=== PATIENT | female | born 1965 | race Caucasian/White ===

== ENCOUNTER 2017-10-29 09:50 | Emergency (ER) | payer BC ==
[2017-10-29 10:03] VITALS: BP 102/44; PULSE 64; TEMP 98; BMI 35.2
--- NOTE | 2017-10-29 12:27 | PDOC ---
History of Present Illness - General Chief Complaint: Injury Stated Complaint: INJURY Time Seen by Provider: 10/29/17 11:33 - History of Present Illness Initial Comments: 52-year-old female without comorbidities presents for evaluation of left knee pain and lower back pain after fall 2 weeks ago. She points to the anterior aspect of the left knee as the area of the discomfort she describes her pain is radicular coming from her lower back to her knee. She has no comorbidities 10/29/17 12:23 Past History - Past Medical History Allergies/Adverse Reactions: Allergies Allergy/AdvReac Type Severity Reaction Status Date / Time No Known Allergies Allergy Verified 10/29/17 09:59 Home Medications: Ambulatory Orders Cyclobenzaprine HCl [Flexeril 10 mg] 10 mg PO HS PRN #10 tablet 10/29/17 Ibuprofen [Motrin -] 600 mg PO TID #30 tablet 10/29/17 COPD: No DVT: No Dementia: No - Immunization History Immunization Up to Date: Yes - Suicide/Smoking/Psychosocial Hx Smoking History: Never smoked Information on smoking cessation initiated: No Hx Alcohol Use: No Drug/Substance Use Hx: No Substance Use Type: None Review of Systems - Review of Systems Musculoskeletal: Yes: See HPI, Back Pain, Joint Pain All Other Systems: Reviewed and Negative *Physical Exam - Vital Signs Last Vital Signs Temp Pulse Resp BP Pulse Ox 98.0 F 64 15 102/44 L 98 10/29/17 09:59 10/29/17 09:59 10/29/17 09:59 10/29/17 09:59 10/29/17 09:59 - Physical Exam Comments: Lumbar spine skin color and temperature are normal. Range of motion slightly decreased. She has mild paralumbar musculature spasm and tenderness bilaterally but greater on the left. No midline tenderness. 5 out of 5 strength in bilateral lower extremities negative straight leg raise test bilaterally. She has no gross sensorimotor deficits she is neurovascular intact. Left knee skin color and temperature are normal. She has moderate tenderness about the area of the patella and MPFL. Range of motion 0-90 with pain at terminal flexion. No medial lateral joint line tenderness. Thigh and calf to soft and nontender. She has no gross sensorimotor deficits. No evidence of instability. She is neurovascularly intact. Extensor Mechanism is intact. 10/29/17 12:23 ED Treatment Course - RADIOLOGY Radiology Studies Ordered: Category Date Time Status KNEE 3 POS-LEFT [RAD] Stat Radiology 10/29/17 11:40 Taken Medical Decision Making - Medical Decision Making X-rays of the left knee show no evidence of fracture trauma destructive process this is most likely knee contusion with an associated lumbar radicular component. She did a split type of fall 2 weeks ago that was her initial trauma. She may have stretched her sciatic nerve and has a sciatic neuropraxia. As well as a knee contusion. 10/29/17 12:25 *DC/Admit/Observation/Transfer Diagnosis at time of Disposition: Contusion of knee, left, Lumbar radiculopathy - Discharge Dispostion Disposition: HOME Condition at time of disposition: Stable Decision to Admit order: No - Referrals Referrals: Jax Carr MD [Staff Physician] - - Patient Instructions Printed Discharge Instructions: Contusion, Lumbar Radiculopathy, DI for Lumbar Radiculopathy Additional Instructions: Return to the emergency room should symptoms worsen or go unresolved. I've given you a prescription for Motrin. This tablets taken 3 times a day with food he may discontinue the tablet if it bothers her stomach. Also given you a prescription for muscle relaxer. This is one tablet at night and will make you sleepy. Please follow-up with orthopedic surgery for further evaluation and treatment of your lower back pain and knee pain. Your x-ray today was negative there was no fracture in her knee. He may weight-bear as tolerated at this point. - Post Discharge Activity
== END 2017-10-29 12:32 | disposition home or self-care (01) ==
LOC: JERFT 09:50
DX: S80.02XA Contusion of left knee, initial encounter (principal); M54.16 Radiculopathy, lumbar region; W18.30XA Fall on same level, unspecified, initial encounter; Y93.89 Activity, other specified; Y92.89 Other specified places as the place of occurrence of the external cause; Y99.9 Unspecified external cause status
CPT/HCPCS: 73562-TC-LT-FY; 99281-25